=== PATIENT | female | born 1990 | race Caucasian/White ===

== ENCOUNTER 2020-08-29 | Emergency (ER) | payer SELFPAY ==
--- NOTE | 2020-08-29 20:25 | ER ---
Nurse's Notes [facility] Name: Cynthia Velazquez Age: 30 yrs Sex: Female : 1990 Arrival Date: 08/29/2020 Time: 17:52 Bed Waiting Private MD: Diagnosis: Presentation: 08/29 18:02 Chief complaint: Patient states: headache since today, pt reports nausea x 2 days ago. aa5 Denies cough, reports sore throat. Coronavirus screen: headache, sore throat. Ebola Screen: Patient negative for fever greater than or equal to 101.5 degrees Fahrenheit, and additional compatible Ebola Virus Disease symptoms. Initial Sepsis Screen: Does the patient meet any 2 criteria? No. Patient's initial sepsis screen is negative. Does the patient have a suspected source of infection? No. Patient's initial sepsis screen is negative. Risk Assessment: Do you want to hurt yourself or someone else? Patient reports no desire to harm self or others. Onset of symptoms was July 2020. 18:02 Acuity: AUGUSTUS 4 aa5 18:02 Method Of Arrival: Ambulatory aa5 Historical: - Allergies: 18:04 No Known Allergies; aa5 - Home Meds: 18:04 Metformin Oral [Active]; levothyroxine oral [Active]; aa5 - PMHx: 18:04 Pre-Diabetes; Asthma; aa5 18:04 Hypothyroidism; aa5 - PSHx: 18:04 Tonsillectomy; aa5 - Immunization history:: Flu vaccine is not up to date. - Social history:: Smoking status: Patient denies any tobacco usage or history of. Assessment: 20:25 Reassessment: called patient from [place] 3 separate times. No answer. ss Vital Signs: 18:02 BP 122 / 80; Pulse 91; Resp 18 S; Temp 98.3(O); Pulse Ox 100% on R/A; Weight 118.84 kg aa5 (R); Height 5 ft. 5 in. (165.10 cm) (R); Pain 8/10; 18:02 Body Mass Index 43.60 (118.84 kg, 165.10 cm) aa5 ED Course: 17:52 Patient arrived in ED. ag5 18:02 Triage completed. aa5 18:02 Arm band placed on. aa5 19:42 Cony Grant FNP-C is [facility]. kb 19:42 Fausto Granados MD is Attending Physician. kb 20:02 Kiesha Girard, RN is Primary Nurse. ca1 Administered Medications: No medications were administered Outcome: 20:25 Patient left the ED. ss 20:54 Patient left the ED. kb Signatures: Cony Grant FNP-C CONTROL PANEL OPERATOR-Ckb Ginger Loo RN RN aa5 Inocencia Guerrero RN RN Kiesha Girard RN RN ca1 Noemi Najera ag5
--- NOTE | 2020-08-29 20:55 | EDPHYS ---
Physician Documentation [facility] Name: Cynthia Velazquez Age: 30 yrs Sex: Female : 1990 Arrival Date: 08/29/2020 Time: 17:52 Bed Waiting Private MD: ED Physician Historical: - Allergies: 08/29 18:04 No Known Allergies; aa5 - Home Meds: 18:04 Metformin Oral [Active]; levothyroxine oral [Active]; aa5 - PMHx: 18:04 Pre-Diabetes; Asthma; aa5 18:04 Hypothyroidism; aa5 - PSHx: 18:04 Tonsillectomy; aa5 - Immunization history:: Flu vaccine is not up to date. - Social history:: Smoking status: Patient denies any tobacco usage or history of. Vital Signs: 18:02 BP 122 / 80; Pulse 91; Resp 18 S; Temp 98.3(O); Pulse Ox 100% on R/A; Weight 118.84 kg aa5 (R); Height 5 ft. 5 in. (165.10 cm) (R); Pain 8/10; 18:02 Body Mass Index 43.60 (118.84 kg, 165.10 cm) aa5 MDM: 20:54 Medical screening is not applicable. kb Administered Medications: No medications were administered Disposition: 08/29/20 20:25 Patient left the facility before being seen by provider. - Patient left due to (see nurse's notes). Signatures: Cony Grant, NATHALIA-C [employer] SUPERVISOR-Ginger Ramirez, RN RN aa5 Inocencia Guerrero RN RN ss Corrections: (The following items were deleted from the chart) 20:25 20:25 08/29/2020 20:25 Patient left the facility before being seen by provider. Reason ss stated they are leaving due to (see nurse's notes). ss 20:54 20:25 08/29/2020 20:25 Patient left the facility before being seen by provider. Reason kb stated they are leaving due to (see nurse's notes). ss
== END 2020-08-29 20:54 | disposition left against medical advice (07) ==
DX: Z53.21 Procedure and treatment not carried out due to patient leaving prior to being seen by health care provider (principal)
CPT/HCPCS: 99281